=== PATIENT | male | born 1950 | race Caucasian/White ===

== ENCOUNTER 2022-01-07 18:20 | Emergency (ER) | payer OTHER ==
[2022-01-07 18:25] VITALS: BP 146/76; PULSE 74; TEMP 97.8; BMI 25.2
== END 2022-01-07 19:25 | disposition home or self-care (01) ==
LOC: JERFT 18:20 → JER 18:20 → JERFT 19:25
DX: T24.212A Burn of second degree of left thigh, initial encounter (principal); X11.8XXA Contact with other hot tap-water, initial encounter; Z48.00 Encounter for change or removal of nonsurgical wound dressing
CPT/HCPCS: 99281-25

== ENCOUNTER 2022-01-21 14:27 | Inpatient (IN) | payer OTHER ==
[~2022-01-21 14:27] MED LIST: METOPROLOL TARTRATE 50 MG TABLET (FP) PO SCH
[2022-01-21] MEDS ORDERED: LORazepam 2 MG/ML SDV VIAL IVPUSH ONE (16:12)
[2022-01-21 17:07] LABS: BASO % 0.4 % (0-2.0); EOS % 0.9 % (0-4.5); HEMOGLOBIN 14.8 GM/dL (11.7-16.9); LYMPH % 19.7 % (8-40); MCHC 33.7 g/dl (32.0-35.9); MEAN CELL VOLUME 92.1 fl (80-96); MEAN PLT VOLUME 7.7 fl (7.5-11.1); MONO % 7.6 % (3.8-10.2); NEUT % 71.4 % (42.8-82.8); PLATELET COUNT 233 10^3/uL (134-434); RBC 4.78 M/mm3 (4.00-5.60); RDW 14.4 % (11.9-15.9)
[2022-01-21 17:26] LABS: CHLORIDE 101 mmol/L (98-107); SODIUM 136 mmol/L (136-145)
[2022-01-21 17:28] LABS: ALBUMIN 4.6 g/dl (3.4-5.0); CALCIUM 9.9 mg/dL (8.5-10.1)
[2022-01-21 17:29] LABS: ANION GAP 8 MMOL/L (8-16); CO2 27 mmol/L (21-32); GLUCOSE,RANDOM 112 mg/dL (74-106); MAGNESIUM 2.4 mg/dL (1.8-2.4)
[2022-01-21 17:32] LABS: PHOSPHOROUS 3.1 mg/dL (2.5-4.9); SGOT/AST 22 U/L (15-37); SGPT/ALT 20 U/L (13-61)
[2022-01-21 17:34] LABS: BILIRUBIN,TOTAL 0.9 mg/dL (0.2-1); TOT PROT 8.3 g/dl (6.4-8.2)
[2022-01-21 17:35] LABS: ALK PHOS 114 U/L (45-117)
[2022-01-21] MEDS ORDERED: MELATONIN 5 MG TABLETS PO ONE (21:28)
[2022-01-21 21:51] LABS: PH,URINE 5.5 (5.0-8.0); URINE APPEARANCE CLEAR; URINE BILIRUBIN NEGATIVE (NEGATIVE); URINE COLOR YELLOW; URINE GLUCOSE (UA) NEGATIVE (NEGATIVE); URINE KETONE TRACE (NEGATIVE); URINE LEUK ESTERASE NEGATIVE (NEGATIVE); URINE NITRITE NEGATIVE (NEGATIVE); URINE PROTEIN NEGATIVE (NEGATIVE); URINE UROBILINOGEN 0.2 mg/dL (0.2-1.0)
[2022-01-21 22:32] LABS: PHENCYCLIDINE,URINE NEGATIVE (NEGATIVE); URINE BENZODIAZEPINES NEGATIVE (NEGATIVE)
[2022-01-21 22:33] LABS: METHADONE, UR NEGATIVE (NEGATIVE); OPIATES, URI NEGATIVE (NEGATIVE)
[2022-01-21 22:46] LABS: URINE BARBITURATES NEGATIVE (NEGATIVE)
[2022-01-21 22:51] LABS: COCAINE, UR NEGATIVE (NEGATIVE); URINE AMPHETAMINES NEGATIVE (NEGATIVE)
[2022-01-21] MEDS ORDERED: diphenhydrAMINE HCL 25 MG CAPSULE (FP) PO PRN (23:02)
[2022-01-21] MEDS ORDERED: ALPRAZolam 0.25 MG TABLET PO PRN (23:02)
[2022-01-21 23:40] LABS: CHOLESTEROL 203 mg/dL (50-200); TRIGLYCERIDES 102 mg/dL (0-150)
[2022-01-21] MEDS ORDERED: APIXABAN 5 MG TABLET ONE (23:40)
[2022-01-21] MEDS ORDERED: diphenhydrAMINE HCL 25 MG CAPSULE (FP) PO ONE (23:40)
[2022-01-21] MEDS ORDERED: ALPRAZolam 0.25 MG TABLET ONE (23:40)
[2022-01-21 23:41] LABS: LDL CHOLESTEROL (ONLY SJRH) 128 mg/dL (5-100)
[2022-01-21 23:43] LABS: HDL CHOLESTEROL 59 mg/dL (40-60)
[2022-01-21] MEDS: APIXABAN 5 MG TABLET PO SCH (23:44)
[2022-01-22 00:43] VITALS: BMI 24.5
[2022-01-22 07:33] LABS: CHLORIDE 104 mmol/L (98-107); SODIUM 138 mmol/L (136-145)
[2022-01-22 07:34] LABS: BASO % 0.5 % (0-2.0); EOS % 2.2 % (0-4.5); HEMATOCRIT 39.5 % (35.4-49); HEMOGLOBIN 13.8 GM/dL (11.7-16.9); LYMPH % 25.9 % (8-40); MEAN CELL VOLUME 91.3 fl (80-96); MEAN PLT VOLUME 7.3 fl (7.5-11.1); MONO % 8.8 % (3.8-10.2); NEUT % 62.6 % (42.8-82.8); PLATELET COUNT 171 10^3/uL (134-434); RBC 4.33 M/mm3 (4.00-5.60); RDW 14.2 % (11.9-15.9); WHITE BLOOD COUNT 4.9 K/mm3 (4.0-10.0)
[2022-01-22 07:36] LABS: ANION GAP 5 MMOL/L (8-16); BLOOD UREA NITROGEN 14.4 mg/dL (7-18); CALCIUM 8.6 mg/dL (8.5-10.1); CO2 29 mmol/L (21-32); GLUCOSE,RANDOM 95 mg/dL (74-106); MAGNESIUM 2.1 mg/dL (1.8-2.4)
[2022-01-22 07:39] LABS: CHOLESTEROL 152 mg/dL (50-200); CREATININE 0.8 mg/dL (0.55-1.3); SGPT/ALT 17 U/L (13-61)
[2022-01-22 07:40] LABS: SGOT/AST 16 U/L (15-37); TRIGLYCERIDES 74 mg/dL (0-150)
[2022-01-22 07:41] LABS: HDL CHOLESTEROL 47 mg/dL (40-60); LDL CHOLESTEROL (ONLY SJRH) 94 mg/dL (5-100); TOT PROT 6.5 g/dl (6.4-8.2)
[2022-01-22 07:42] LABS: ALK PHOS 95 U/L (45-117)
[2022-01-22 07:45] LABS: N-TERMINAL BNP 1033.9 pg/ml (5-125)
[2022-01-22 07:48] LABS: ALBUMIN 3.4 g/dl (3.4-5.0)
[2022-01-22] MEDS ORDERED: RAMIPRIL 5 MG CAPSULE PO SCH (10:00)
[2022-01-22] MEDS: APIXABAN 5 MG TABLET PO SCH (10:44)
[2022-01-22 13:14] VITALS: BP 122/62; PULSE 70; TEMP 98.6
[2022-01-22] MEDS ORDERED: ROSUVASTATIN CA 20 MG TABLET PO SCH (22:00)
== END 2022-01-22 17:10 | disposition left against medical advice (07) | DRG 880 ==
LOC: JER 14:27 → JERBED 20:34 → J4W 23:52
PROVIDERS: ADMIT Internal Medicine; ATTEND Internal Medicine
DX: F41.0 Panic disorder [episodic paroxysmal anxiety] (principal); I42.1 Obstructive hypertrophic cardiomyopathy; R00.2 Palpitations; R55 Syncope and collapse; I25.10 Atherosclerotic heart disease of native coronary artery without angina pectoris; I10 Essential (primary) hypertension; E78.00 Pure hypercholesterolemia, unspecified; E78.5 Hyperlipidemia, unspecified; F41.9 Anxiety disorder, unspecified; I25.2 Old myocardial infarction; Z53.29 Procedure and treatment not carried out because of patient's decision for other reasons; F12.90 Cannabis use, unspecified, uncomplicated; H93.19 Tinnitus, unspecified ear; R77.8 Other specified abnormalities of plasma proteins
CPT/HCPCS: 36415; 70450-TC; 71045-TC-FY; 80053; 80061; 80307; 81003; 83036; 83497; 83735; 83880; 84100; 84443; 84484; 85025; 93005; 93010; 99285-25; C9803-CS; G0378; U0003; U0005

== ENCOUNTER 2022-07-10 00:40 | Emergency (ER) | payer OTHER ==
[2022-07-10 01:09] VITALS: BP 153/86; PULSE 65; RESP 18; TEMP 97.7; BMI 23.8
[2022-07-10] MEDS ORDERED: ZOLPIDEM TARTRATE 5 MG TABLET PO ONE (02:14)
[2022-07-10] MEDS ORDERED: ZOLPIDEM TARTRATE 5 MG TABLET ONE (02:15)
== END 2022-07-10 02:25 | disposition home or self-care (01) ==
LOC: JER 00:40
DX: G47.9 Sleep disorder, unspecified (principal); R03.0 Elevated blood-pressure reading, without diagnosis of hypertension
CPT/HCPCS: 93005; 93010; 99283-25

== ENCOUNTER 2023-04-18 07:14 | Inpatient (IN) | payer OTHER ==
[2023-04-18] MEDS ORDERED: MIDAZOLAM HCL 2 MG/2 ML SINGLE DOSE VIAL IVPUSH ONE (07:25)
[2023-04-18] MEDS ORDERED: MIDAZOLAM HCL 2 MG/2 ML SINGLE DOSE VIAL ONE (07:26)
[2023-04-18] MEDS ORDERED: SODIUM CHLORIDE 1,000 ML IV SCH (07:30)
[2023-04-18 08:24] VITALS: BMI 24.7
[2023-04-18 09:13] LABS: HEMATOCRIT 42.2 % (35.4-49); MCH 32.7 pg (25.7-33.7); MCHC 33.1 g/dl (32.0-35.9); MEAN CELL VOLUME 98.8 fl (80-96); MEAN PLT VOLUME 8.3 fl (7.5-11.1); PLATELET COUNT 196 10^3/uL (134-434); RBC 4.27 M/mm3 (4.00-5.60); RDW 14.3 % (11.9-15.9)
[2023-04-18 09:16] LABS: INR 0.97 (0.83-1.09); PROTHROMBIN TIME (PATIENT) 11.3 SEC (9.7-13.0)
[2023-04-18 09:19] LABS: ACTIVATED PTT 23.8 SECONDS (25.2-36.5)
[2023-04-18 09:22] LABS: CHLORIDE 105 mmol/L (98-107); POTASSIUM 4.6 mmol/L (3.5-5.1); SODIUM 138 mmol/L (136-145)
[2023-04-18 09:23] LABS: CALCIUM 9.1 mg/dL (8.5-10.1)
[2023-04-18 09:24] LABS: ALBUMIN 3.7 g/dl (3.4-5.0); ANION GAP 5 MMOL/L (8-16); CO2 29 mmol/L (21-32)
[2023-04-18 09:25] LABS: BLOOD UREA NITROGEN 12.8 mg/dL (7-18); GLUCOSE,RANDOM 183 mg/dL (74-106)
[2023-04-18 09:27] LABS: CREATININE 1.1 mg/dL (0.55-1.3); SGOT/AST 22 U/L (15-37); SGPT/ALT 20 U/L (13-61)
[2023-04-18 09:28] LABS: CHOLESTEROL 161 mg/dL (50-200)
[2023-04-18 09:29] LABS: TOT PROT 7.1 g/dl (6.4-8.2)
[2023-04-18 09:30] LABS: BILIRUBIN,TOTAL 0.5 mg/dL (0.2-1); LDL CHOLESTEROL (ONLY SJRH) 78 mg/dL (5-100)
[2023-04-18 09:31] LABS: ALK PHOS 82 U/L (45-117); HDL CHOLESTEROL 71 mg/dL (40-60)
[2023-04-18] MEDS ORDERED: SODIUM CHLORIDE 1,000 ML IV STA (09:37)
[2023-04-18 11:12] LABS: ANISOCYTOSIS 1+; MACROCYTOSIS 1+
[2023-04-18] MEDS ORDERED: SERTRALINE HCL 50 MG TABLET (FP) ONE (11:42)
[2023-04-18] MEDS ORDERED: METOPROLOL TARTRATE 50 MG TABLET (FP) ONE (11:42)
[2023-04-18] MEDS ORDERED: RAMIPRIL 5 MG CAPSULE ONE (11:42)
[2023-04-18] MEDS ORDERED: APIXABAN 5 MG TABLET ONE (11:42)
[2023-04-18] MEDS: APIXABAN 5 MG TABLET PO SCH ×2 (11:49→22:19)
[2023-04-18] MEDS: METOPROLOL TARTRATE 50 MG TABLET (FP) PO SCH ×2 (11:49→22:19)
[2023-04-18] MEDS: RAMIPRIL 5 MG CAPSULE PO SCH (11:49)
[2023-04-18] MEDS: SERTRALINE HCL 25 MG TABLET (FP) PO SCH (11:49)
[2023-04-18 12:12] LABS: EPI CELLS 3 /uL (0-25.1); HYALINE CASTS 1 /uL (0-3.1); PH,URINE 5.5 (5.0-8.0); URINE APPEARANCE CLEAR; URINE BACTERIA 1 /uL (0-1359); URINE BILIRUBIN NEGATIVE (NEGATIVE); URINE COLOR YELLOW; URINE GLUCOSE (UA) 1+ (NEGATIVE); URINE KETONE NEGATIVE (NEGATIVE); URINE LEUK ESTERASE NEGATIVE (NEGATIVE); URINE NITRITE NEGATIVE (NEGATIVE); URINE PROTEIN TRACE (NEGATIVE); URINE RBC 35 /uL (0-23.9); URINE UROBILINOGEN 0.2 mg/dL (0.2-1.0); URINE WBC 17 /uL (0-25.8)
[2023-04-18 12:17] LABS: PHENCYCLIDINE,URINE NEGATIVE (NEGATIVE)
[2023-04-18 12:18] LABS: COCAINE, UR NEGATIVE (NEGATIVE); METHADONE, UR NEGATIVE (NEGATIVE); URINE AMPHETAMINES NEGATIVE (NEGATIVE)
[2023-04-18 12:21] LABS: URINE BARBITURATES NEGATIVE (NEGATIVE)
[2023-04-18 12:27] LABS: OPIATES, URI NEGATIVE (NEGATIVE)
[2023-04-18 12:36] LABS: URINE BENZODIAZEPINES POSITIVE (NEGATIVE)
[2023-04-18] MEDS ORDERED: LACTATED RINGERS SOLUTION 1,000 ML/1,000 ML INFUS.BAG IV SCH (13:45)
[2023-04-18] MEDS ORDERED: MELATONIN 5 MG TABLETS PO PRN (13:51)
[2023-04-18 20:55] VITALS: RESP 18
[2023-04-18] MEDS ORDERED: ROSUVASTATIN CA 20 MG TABLET PO SCH (22:00)
[2023-04-18] MEDS ORDERED: ALPRAZolam 0.25 MG TABLET PO PRN (22:00)
[2023-04-19 06:11] VITALS: TEMP 98.4
[2023-04-19 08:24] LABS: BASO % 0.1 % (0-2.0); EOS % 0.4 % (0-4.5); HEMATOCRIT 42.1 % (35.4-49); HEMOGLOBIN 13.5 GM/dL (11.7-16.9); LYMPH % 11.3 % (8-40); MCH 31.6 pg (25.7-33.7); MCHC 32.1 g/dl (32.0-35.9); MEAN CELL VOLUME 98.4 fl (80-96); MEAN PLT VOLUME 8.2 fl (7.5-11.1); MONO % 6.8 % (3.8-10.2); NEUT % 81.4 % (42.8-82.8); PLATELET COUNT 174 10^3/uL (134-434); RBC 4.28 M/mm3 (4.00-5.60); RDW 14.6 % (11.9-15.9); WHITE BLOOD COUNT 11.6 K/mm3 (4.0-10.0)
[2023-04-19 08:37] LABS: POTASSIUM 4.7 mmol/L (3.5-5.1)
[2023-04-19 08:39] LABS: ALBUMIN 3.5 g/dl (3.4-5.0); BLOOD UREA NITROGEN 7.6 mg/dL (7-18); CALCIUM 9.1 mg/dL (8.5-10.1); MAGNESIUM 2.3 mg/dL (1.8-2.4)
[2023-04-19 08:42] LABS: PHOSPHOROUS 1.7 mg/dL (2.5-4.9)
[2023-04-19 08:43] LABS: BILIRUBIN,TOTAL 0.9 mg/dL (0.2-1); CREATININE 0.9 mg/dL (0.55-1.3); TOT PROT 6.6 g/dl (6.4-8.2)
[2023-04-19 10:03] VITALS: BP 138/71; PULSE 67
[2023-04-19] MEDS: METOPROLOL TARTRATE 50 MG TABLET (FP) PO SCH (10:04)
[2023-04-19] MEDS: RAMIPRIL 5 MG CAPSULE PO SCH (10:04)
[2023-04-19] MEDS: APIXABAN 5 MG TABLET PO SCH (10:04)
[2023-04-19] MEDS: SERTRALINE HCL 25 MG TABLET (FP) PO SCH (10:04)
== END 2023-04-19 17:50 | disposition home or self-care (01) | DRG 101 ==
LOC: JER 07:14 → JERBED 09:48 → J4W 13:55
PROVIDERS: ADMIT Internal Medicine; ATTEND Internal Medicine
DX: R56.9 Unspecified convulsions (principal); I42.2 Other hypertrophic cardiomyopathy; R41.82 Altered mental status, unspecified; I10 Essential (primary) hypertension; E78.00 Pure hypercholesterolemia, unspecified; N40.0 Benign prostatic hyperplasia without lower urinary tract symptoms; F12.10 Cannabis abuse, uncomplicated; F10.20 Alcohol dependence, uncomplicated; S00.01XA Abrasion of scalp, initial encounter; F41.9 Anxiety disorder, unspecified; E78.5 Hyperlipidemia, unspecified; S00.83XA Contusion of other part of head, initial encounter; I25.10 Atherosclerotic heart disease of native coronary artery without angina pectoris; I51.3 Intracardiac thrombosis, not elsewhere classified; K57.90 Diverticulosis of intestine, part unspecified, without perforation or abscess without bleeding; Z95.810 Presence of automatic (implantable) cardiac defibrillator; Z95.5 Presence of coronary angioplasty implant and graft; X58.XXXA Exposure to other specified factors, initial encounter; Y92.098 Other place in other non-institutional residence as the place of occurrence of the external cause
CPT/HCPCS: 36415; 70450-TC; 71045-TC-FY; 72125-TC; 80053; 80061; 80307; 81003; 82550; 82553; 82962; 83036; 83735; 84100; 84146; 84443; 84484; 85025; 85610; 85730; 86850; 86900; 86901; 87635; 93005; 93010; 95816; 97116-GP; 97161-GP; 99285-25

== ENCOUNTER 2024-12-28 02:22 | Inpatient (IN) | payer OTHER ==
[2024-12-28 03:51] LABS: VENOUS O2 SATURATION 54.6 % (70-80); VENOUS PCO2 60.1 mmHg (38-52); VENOUS PH 7.257 (7.310-7.410)
[2024-12-28 03:55] LABS: BASO % 0.5 % (0-2.0); HEMATOCRIT 35.8 % (35.4-49); HEMOGLOBIN 11.7 GM/dL (11.7-16.9); LYMPH % 9.4 % (8-40); MCH 30.9 pg (25.7-33.7); MCHC 32.8 g/dl (32.0-35.9); MEAN CELL VOLUME 94.3 fl (80-96); MEAN PLT VOLUME 6.3 fl (7.5-11.1); MONO % 7.8 % (3.8-10.2); NEUT % 80.3 % (42.8-82.8); PLATELET COUNT 394 10^3/uL (134-434); RBC 3.79 M/mm3 (4.00-5.60); RDW 14.6 % (11.9-15.9); WHITE BLOOD COUNT 9.4 K/mm3 (4.0-10.0)
[2024-12-28 04:00] LABS: INR 1.31 (0.83-1.09); PROTHROMBIN TIME (PATIENT) 14.4 SEC (9.7-13.0)
[2024-12-28 04:03] LABS: ACTIVATED PTT 43.5 SECONDS (25.2-36.5)
[2024-12-28 04:18] LABS: POTASSIUM 5.8 mmol/L (3.5-5.1)
[2024-12-28 04:20] LABS: CALCIUM 9.4 mg/dL (8.5-10.1)
[2024-12-28 04:21] LABS: BLOOD UREA NITROGEN 15.1 mg/dL (7-18); MAGNESIUM 2.3 mg/dL (1.8-2.4)
[2024-12-28 04:24] LABS: CREATININE 0.8 mg/dL (0.55-1.3); PHOSPHOROUS 3.7 mg/dL (2.5-4.9)
[2024-12-28 04:25] LABS: BILIRUBIN,TOTAL 0.4 mg/dL (0.2-1); TOT PROT 7.4 g/dl (6.4-8.2)
[2024-12-28 04:29] LABS: N-TERMINAL BNP 4338.6 pg/ml (5-125)
[2024-12-28] MEDS ORDERED: CALCIUM GLUC IN NACL, ISO-OSM 1 GM/50 ML BAG IVPB ONE (04:46)
[2024-12-28] MEDS ORDERED: FUROSEMIDE 40 MG/4 ML INJECTABLE VIAL ONE (04:47)
[2024-12-28] MEDS ORDERED: DEXTROSE 50%-WATER 25 GM/50 ML DISP.SYRIN ONE (04:48)
[2024-12-28] MEDS ORDERED: INSULIN REGULAR HUMAN 100 UNITS/ML *VIAL ONE (04:48)
[2024-12-28] MEDS: DEXTROSE 50%-WATER - 25 GM/50 ML VIAL IVPUSH ONE (05:05)
[2024-12-28] MEDS: FUROSEMIDE 40 MG/4 ML INJECTABLE VIAL IVPUSH ONE (05:08)
[2024-12-28] MEDS: CALCIUM GLUCONATE 10% - 1,000 MG/10 ML VIAL IVPUSH ONE (05:09)
[2024-12-28] MEDS: INSULIN REGULAR HUMAN 100 UNITS/ML *VIAL IVPUSH ONE (05:09)
[2024-12-28 07:06] LABS: BASO % 0.3 % (0-2.0); EOS % 0.7 % (0-4.5); HEMATOCRIT 35.3 % (35.4-49); HEMOGLOBIN 11.5 GM/dL (11.7-16.9); LYMPH % 7.3 % (8-40); MCH 30.8 pg (25.7-33.7); MCHC 32.6 g/dl (32.0-35.9); MEAN CELL VOLUME 94.6 fl (80-96); MEAN PLT VOLUME 6.5 fl (7.5-11.1); MONO % 7.7 % (3.8-10.2); PLATELET COUNT 389 10^3/uL (134-434); RBC 3.74 M/mm3 (4.00-5.60); RDW 14.4 % (11.9-15.9); WHITE BLOOD COUNT 10.4 K/mm3 (4.0-10.0)
[2024-12-28 07:35] LABS: CALCIUM 9.4 mg/dL (8.5-10.1)
[2024-12-28 07:36] LABS: BLOOD UREA NITROGEN 12.9 mg/dL (7-18)
[2024-12-28 07:39] LABS: CREATININE 0.8 mg/dL (0.55-1.3)
[2024-12-28] MEDS ORDERED: ALPRAZolam 0.25 MG TABLET ONE (08:15)
[2024-12-28] MEDS: ALPRAZolam 0.25 MG TABLET PO PRN (08:18)
[2024-12-28] MEDS: FUROSEMIDE 40 MG/4 ML INJECTABLE VIAL IVPUSH SCH (09:43)
[2024-12-28] MEDS: METOPROLOL TARTRATE 50 MG TABLET (FP) PO SCH (09:43)
[2024-12-28] MEDS ORDERED: HEPARIN NA (PORCINE) 5,000 UNITS/ML 1ML VIAL SQ SCH (10:00)
[2024-12-28] MEDS: SACUBITRIL/VALSARTAN 49 MG-51 MG TABLET PO SCH (10:48)
[2024-12-28] MEDS: EMPAGLIFLOZIN (JARDIANCE) 10 MG TABLET PO SCH (10:48)
[2024-12-28] MEDS: DABIGATRAN ETEXILATE MESYLATE 150 MG CAPSULE PO SCH (10:48)
[2024-12-28 11:55] VITALS: BMI 25.4
[2024-12-28] MEDS: ROSUVASTATIN CA 20 MG TABLET PO SCH (21:08)
[2024-12-28] MEDS: MELATONIN 5 MG TABLETS PO PRN (21:54)
[2024-12-28 22:37] VITALS: RESP 18
[2024-12-29 07:22] LABS: POTASSIUM 4.2 mmol/L (3.5-5.1)
[2024-12-29 07:29] LABS: ALBUMIN 2.7 g/dl (3.4-5.0); BLOOD UREA NITROGEN 10.9 mg/dL (7-18); MAGNESIUM 2.1 mg/dL (1.8-2.4)
[2024-12-29 07:32] LABS: CREATININE 0.7 mg/dL (0.55-1.3)
[2024-12-29 07:33] LABS: BILIRUBIN,TOTAL 0.7 mg/dL (0.2-1); HEMATOCRIT 34.7 % (35.4-49); HEMOGLOBIN 11.5 GM/dL (11.7-16.9); MCH 31.1 pg (25.7-33.7); MCHC 33.1 g/dl (32.0-35.9); MEAN PLT VOLUME 6.6 fl (7.5-11.1); PLATELET COUNT 390 10^3/uL (134-434); RBC 3.69 M/mm3 (4.00-5.60); RDW 14.5 % (11.9-15.9); TOT PROT 6.8 g/dl (6.4-8.2); WHITE BLOOD COUNT 7.4 K/mm3 (4.0-10.0)
[2024-12-29] MEDS: FUROSEMIDE 20 MG TABLET (FP) PO SCH (10:19)
[2024-12-30 13:48] VITALS: BP 101/63; PULSE 83; TEMP 98.8
[2024-12-30 16:06] LABS: POTASSIUM 4.4 mmol/L (3.5-5.1)
[2024-12-30 16:08] LABS: BLOOD UREA NITROGEN 12.7 mg/dL (7-18); CALCIUM 9.4 mg/dL (8.5-10.1); MAGNESIUM 2.4 mg/dL (1.8-2.4)
[2024-12-30 16:12] LABS: CREATININE 0.8 mg/dL (0.55-1.3)
== END 2024-12-30 17:00 | disposition home or self-care (01) | DRG 291 ==
LOC: JER 02:22 → JERBED 05:19 → OBSVTOIN 06:15 → J4W 09:02
PROVIDERS: ADMIT Student in an Organized Health Care Education/Training Program; ATTEND Internal Medicine
DX: I11.0 Hypertensive heart disease with heart failure (principal); I50.23 Acute on chronic systolic (congestive) heart failure; E87.5 Hyperkalemia; E78.5 Hyperlipidemia, unspecified; K21.9 Gastro-esophageal reflux disease without esophagitis; I25.10 Atherosclerotic heart disease of native coronary artery without angina pectoris; Z95.5 Presence of coronary angioplasty implant and graft; F41.9 Anxiety disorder, unspecified; G47.00 Insomnia, unspecified
CPT/HCPCS: 0241U-QW; 36415; 71045-TC-FY; 80048; 80053; 82803; 82962; 83735; 83880; 84100; 84484; 85025; 85027; 85610; 85730; 86850; 86900; 86901; 93005; 93010; 93306-TC; 99285-25; G0378